=== PATIENT | female | born 1995 | race Caucasian/White ===

== ENCOUNTER 2023-09-13 11:26 | Outpatient (CLI) | payer MEDICAID, SELFPAY | END 2023-09-13 11:27 | disposition home or self-care (01) | PROVIDERS: PCP Family Medicine; Visit Provider Family Medicine | DX: E66.01 Morbid (severe) obesity due to excess calories (principal); R03.0 Elevated blood-pressure reading, without diagnosis of hypertension; Z13.6 Encounter for screening for cardiovascular disorders | CPT/HCPCS: 80053; 80061; 82043; 82570 ==

== ENCOUNTER 2024-01-02 16:02 | Outpatient (CLI) | payer MEDICAID, SELFPAY | END 2024-01-02 16:03 | disposition home or self-care (01) | PROVIDERS: PCP Family Medicine; Visit Provider Physician Assistant | DX: N92.0 Excessive and frequent menstruation with regular cycle (principal); Z13.29 Encounter for screening for other suspected endocrine disorder | CPT/HCPCS: 83520; 84443 ==

== ENCOUNTER 2024-01-16 15:54 | Outpatient (CLI) | payer MEDICAID, SELFPAY ==
--- NOTE | 2024-01-16 16:00 | US_ITS ---
Final Report Patient: JASWINDER DILLARD Facility:?[facility] Patient ID:?[id number] Site Patient ID:?[id number]. Site :?[id number] Study:?US Pelvis TA/TV-01/16/2024 4:48:24 PM Ordering Physician:LUCY Final Report: INDICATION: Heavy cycles COMPARISON: none TECHNIQUE: 2D feliciano scale and color Doppler images were acquired of the pelvis using a transabdominal and transvaginal approach. FINDINGS: There is a subserosal fibroid measuring 9 x 10 x 10 millimeters. Uterus measures 10.7 cm in length by 5.4 cm in AP diameter by 5.7 cm in transverse dimension. The endometrial lining measures 14 mm in composite thickness. The right ovary measures 3.3 x 1.6 x 1.8 cm in size and the left ovary measures 4.0 x 3.0 x 3.6 cm. The ovaries demonstrate normal arterial and venous blood flow on color Doppler analysis. There are no suspicious fluid collections within the cul-de-sac. Left ovarian cyst is present with mostly anechoic internal echotexture along with a thin curvilinear septation measuring 2.5 x 2.3 x 2.4 cm. No solid component. IMPRESSION: Endometrial thickness 14 millimeters. No endometrial fluid. 2.5 cm probable hemorrhagic left ovarian cyst. No excess pelvic free fluid. Dictated by Eddie Lima MD @ 01/17/2024 7:06:46 AM (Electronic Signature)
== END 2024-01-16 15:55 | disposition home or self-care (01) ==
LOC: US 15:55
PROVIDERS: PCP Family Medicine; Visit Provider Physician Assistant
DX: N92.0 Excessive and frequent menstruation with regular cycle (principal); R93.89 Abnormal findings on diagnostic imaging of other specified body structures; N83.202 Unspecified ovarian cyst, left side
CPT/HCPCS: 76830; 76856

== ENCOUNTER 2025-08-01 09:04 | Outpatient (CLI) | payer BC, SELFPAY | END 2025-08-01 09:05 | disposition home or self-care (01) | LOC: NFLDREF 08-06 11:10 | PROVIDERS: PCP Nurse Practitioner Family; Referring Provider Nurse Practitioner Family; Visit Provider Nurse Practitioner Family | DX: R53.83 Other fatigue (principal); Z13.6 Encounter for screening for cardiovascular disorders | CPT/HCPCS: 80061; 84443 ==